=== PATIENT | female | born 1990 | race Two or more races ===

== ENCOUNTER 2016-06-29 11:14 | Inpatient (IN) | payer OTHER ==
[2016-07-07] MEDS ORDERED: OXYTOCIN IN LR 500 ML IV ONE ×2 (11:34→12:28)
[2016-07-07 12:05] VITALS: BMI 31.4
[2016-07-07 12:23] LABS: HEMATOCRIT 33.2 % (37.0-47.0); HEMOGLOBIN 10.3 gm/l (12.0-16.0); MEAN CORPUSCULAR HEMOGLOBIN 23.9 pg (27.0-31.0); RED CELL DISTRIBUTION WIDTH 14.8 % (11.5-14.5)
[2016-07-07] MEDS ORDERED: IV START KIT ONE ×2 (12:26→12:53)
[2016-07-07] MEDS ORDERED: PUMP TUBING ONE (12:27)
[2016-07-07] MEDS ORDERED: OXYTOCIN 10 UNITS/ML VIAL ONE (12:27)
[2016-07-07] MEDS ORDERED: SODIUM CHLORIDE 0.9% FLUSH 10 ML ONE ×2 (12:27→12:53)
[2016-07-07] MEDS ORDERED: LIDOCAINE 1% (PRES FREE) 30 ML VIAL ONE (12:27)
[2016-07-07] MEDS ORDERED: LIDOCAINE Viscous 2% 15 ML UDCUP ONE (12:27)
[2016-07-07] MEDS ORDERED: MINERAL OIL 25 ML BOT ONE (12:27)
[2016-07-07] MEDS ORDERED: ONDANSETRON 4 MG/2ML 2 ML VIAL IV PRN ×2 (14:43→19:05)
[2016-07-07] MEDS: FENTANYL 100 MCG/2 ML VIAL IV PRN ×2 (17:17→18:21)
[2016-07-07] MEDS: LACTATED RINGERS 500 ML IV ONE ×2 (17:45→18:41)
[2016-07-07] MEDS ORDERED: EPIDURAL PUMP SET ONE (17:49)
[2016-07-07] MEDS ORDERED: FENTANYL/ROPIVACAINE EPIDURAL 250 ML EP ONE (17:50)
[2016-07-07] MEDS ORDERED: LACTATED RINGERS 2,000 ML ONE (17:50)
[2016-07-07] MEDS ORDERED: PROMETHAZINE HCL 25 MG/ML VIAL IM PRN (18:19)
--- NOTE | 2016-07-07 18:33 | PCMAN ---
OB Admission Note - History : 5 Term: 3 : 0 Abortions (S&E): 2 Livin EDC:: 07/07/16 Gestational Age (weeks): 40 Days (#/7): 0 Admit Cervical Dilation:: 3 Admit Cervical Effacement (%):: 75 Admit Station:: -2 Membrane Status: Ruptured Rupture (Date): 07/07/16 Rupture (Time): 11:00 Membranes Comment:: clear Labor Onset (Date): 07/07/16 Labor Onset (Time): 11:00 Contractions: Yes Contraction Frequency:: occassional Heart Rate:: 130 Status:: category 1 Summary of Course:: course complicated by Iron deficiency anemia, Depression with Anxiety and nausea. Dating by 8 week US. She had 2 miscarriages in 2014 so we did the early US. 20 week US confirmed dating and showed normal male fetus. She was in for regular visit today and ended up rupturing clear fluid as I was checking her cervix and attempting to sweep the membranes. - Labs Blood Type: O (+) positive Hct/Hgb:: 33.2/10.3 Rubella Status: Immune GBS Status: Negative Abnormal Labs: None - Physical Exam General: Afebrile, Mild Distress Psych/Mental Status: Mood/Affect Appropriate, Judgment/Insight Intact Neurological: Grossly Intact, Alert, Oriented x 4, Normal Gait, Normal Speech HEENT: Atraumatic, PERRLA, EOMI, Mucous membr. moist/pink Lungs: Clear to Auscultation Bilaterally Cardiovascular: Regular Rate and Rhythm, No Murmur Abdomen: Normal Bowel Sounds Genitourinary: Normal Female Genitalia, No Edema Rectal Exam: Deferred Extremities: Full ROM, No Edema DTR: Patellar (L): 2+ (Brisk, Normal), Patellar (R): 2+ (Brisk, Normal) Skin: Normal Color, No Rash - Problems (1) 40 weeks gestation of Status: Acute Code: Z3A.40 Assessment/Plan: SROM, starting labor, expect (2) SROM (spontaneous rupture of membranes) Status: Acute Code: [id number] Assessment/Plan: Clear amniotic fluid, expectant management. (3) Iron deficiency anemia of mother during Status: Acute Code: O99.019 Assessment/Plan: Taking oral Iron with vitamin C, will continue. (4) Depression with anxiety Status: Acute Code: F41.8 Assessment/Plan: Was taking Viibryd earlier in but is not taking it currently.
[2016-07-07] MEDS ORDERED: NALBUPHINE HCL 20 MG/ML AMP IV PRN (19:05)
[2016-07-07] MEDS ORDERED: DIPHENHYDRAMINE HCL 50 MG/1 ML VIAL IV PRN (19:05)
[2016-07-07] MEDS ORDERED: SODIUM CHLORIDE 0.9% 500 ML IV PRN (19:05)
[2016-07-07] MEDS ORDERED: NALOXONE HCL 0.4 MG/ML VIAL IV PRN (19:05)
[2016-07-07] MEDS ORDERED: EPHEDRINE SULFATE 50 MG/ML 1ML VIAL IV PRN (19:05)
[2016-07-07] MEDS ORDERED: METOCLOPRAMIDE HCL 5 MG/ML 2ML VIAL IV PRN (19:05)
[2016-07-07] MEDS ORDERED: LACTATED RINGERS 1,000 ML IV SCH (19:05)
[2016-07-07] MEDS ORDERED: LACTATED RINGERS 500 ML IV PRN (19:05)
[2016-07-07] MEDS ORDERED: FENTANYL/ROPIVACAINE EPIDURAL 250 ML EP SCH (19:05)
[2016-07-07] MEDS ORDERED: EPIDURAL PROCEDURE TRAY ONE (19:31)
[2016-07-07] MEDS ORDERED: LIDOCAINE 2% (PRES FREE) 5 ML VIAL ONE (19:31)
[2016-07-07] MEDS ORDERED: OXYCODONE HCL 5 MG TABLET PO PRN (22:18)
[2016-07-07] MEDS ORDERED: CALCIUM CARBONATE 500 MG TAB.CHEW PO PRN (22:18)
[2016-07-07] MEDS ORDERED: BENZOCAINE/MENTHOL 60 APPLIC/BOT TP PRN (22:18)
[2016-07-07] MEDS ORDERED: ACETAMINOPHEN 325 MG TABLET PO PRN (22:18)
[2016-07-07] MEDS ORDERED: LANOLIN 50 APPLIC/7G TUBE TP PRN (22:18)
--- NOTE | 2016-07-07 22:23 | PCMDEL ---
Delivery Note - Labor 1st stage (hr/min):: 10 hr/52 min 2nd stage (hr/min):: 21 min 3rd stage (hr/min):: 5 min Total (hr/min):: 11 hr/ 18 min Pushed (hr/min):: 5 min - Delivery Delivery (Date): 07/07/16 Delivery (Time): 21:52 Gender: Male Presentation: Cephalic Position: OA Umbilical Cord: 3 Vessel Delayed Cord Clamping:: > 3 min 1 Minute Total: 9 5 Minute Total: 9 Placenta:: intact EBL:: 100 ml Perineum:: intact Suture:: N/A Anesthesia/Meds:: Epidural Length ROM:: 10 hr/52 min Comments:: Beautiful, uncomplicated vaginal delivery assisted by patient's mother who caught baby and placed him on patient chest. Mother and stable post .
[2016-07-07] MEDS: IBUPROFEN 800 MG TABLET PO PRN (23:29)
[2016-07-08] MEDS ORDERED: IV START KIT ONE (01:54)
[2016-07-08] MEDS ORDERED: LACTATED RINGERS 1,000 ML ONE (01:54)
[2016-07-08] MEDS: OXYCODONE/ACETAMINOPHEN 5/325 MG TABLET PO PRN ×5 (02:10→20:28)
[2016-07-08] MEDS: IBUPROFEN 800 MG TABLET PO PRN ×3 (05:57→19:57)
[2016-07-08 07:01] LABS: HEMATOCRIT 29.1 % (37.0-47.0); HEMOGLOBIN 9.2 gm/l (12.0-16.0)
--- NOTE | 2016-07-08 08:35 | PDOC44 ---
- Subjective Day: 1 Reports Flatus, Reports Pain Tolerable, Reports , Reports Lochia Light, Reports Tolerating Regular Diet - Objective Temp Pulse Resp BP Pulse Ox 98.5 F 101 18 112/55 07/08/16 02:05 07/08/16 02:05 07/08/16 02:05 07/08/16 02:05 Lab Results 07/08/16 07/07/16 06:15 12:00 WBC 9.3 RBC 4.31 Hgb 9.2 L 10.3 L Hct 29.1 L 33.2 L Plt Count 360 07/07/16 12:00 MCV 77.0 L MCH 23.9 L MCHC 31.0 L RDW 14.8 H Current Medications Generic Name Dose Route Start Last Admin Trade Name Freq PRN Reason Stop Dose Admin Acetaminophen 325 - 650 mg 07/07/16 22:18 Tylenol PO Q4H PRN Pain (Mild) Ascorbic Acid 500 mg 07/08/16 07:00 Vitamin C PO 0700,1700 YESSI Benzocaine/Menthol 1 applic 07/07/16 22:18 Dermoplast TP PRN PRN Patient Comfort Calcium Carbonate/Glycine 500 - 1,000 mg 07/07/16 22:18 Tums PO BID PRN Indigestion Docusate Sodium 100 mg 07/07/16 22:18 Colace PO DAILY PRN Comfort Emollient Ointment 1 applic 07/07/16 22:18 [id number] TP PRN PRN sore nipples Ferrous Sulfate 325 mg 07/08/16 07:00 Ferrous Sulfate PO 0700,1700 YESSI Ropivacaine/Fentanyl/NS 250 mls @ 0 mls/hr 07/07/16 19:05 07/07/16 19:24 Fentanyl 2 Mcg/Ml + Ropivacaine 0.125% Ep Bag EP 15 mls/hr EPI YESSI Administration Protocol Per Protocol Ibuprofen 800 mg 07/07/16 22:18 07/08/16 05:57 Motrin PO 800 mg Q6H PRN Administration Pain (Mild) Multivi/Iron Carb/Fe Sulf/FA/Prenat 1 tab 07/08/16 09:00 Plus PO DAILY YESSI Ondansetron HCl 4 mg 07/07/16 14:43 07/07/16 16:50 Zofran IV 4 mg Q6H PRN Administration Nausea/Vomiting Oxycodone HCl 5 - 10 mg 07/07/16 22:18 Roxicodone PO Q3H PRN Pain (Severe) Oxycodone/Acetaminophen 1 - 2 tab 07/07/16 22:18 07/08/16 06:28 Percocet 5/325 PO 2 tab Q4H PRN Administration Pain (Moderate) Sodium Chloride 10 ml 07/07/16 22:18 Normal Saline 10ml Flush IV PRN PRN IV Flush - Physical Exam General: Afebrile, No Acute Distress Psych/Mental Status: Mood/Affect Appropriate, Bonding Well Neurological: Alert, Oriented x 4 HEENT: Atraumatic, PERRLA, EOMI, Mucous membr. moist/pink Lungs: Clear to Auscultation Bilaterally Cardiovascular: Regular Rate and Rhythm, No Murmur Breast: Soft, Nipples Intact, No Nipples Cracked Fundus: Firm, Midline, At Umbilicus Abdomen: Normal Bowel Sounds Genitourinary: Normal Female Genitalia, No Edema Lochia: Light Extremities: Full ROM, No Edema, No Tenderness Skin: Normal Color, Warm, Dry, Intact, No Rash - Problems:Assessment/Plan (1) Iron deficiency anemia of mother during Status: Acute Assessment/Plan: Taking oral Iron with vitamin C, will continue. (2) Depression with anxiety Status: Acute Assessment/Plan: Was taking Viibryd earlier in but is not taking it currently and mood is stable. (3) (normal spontaneous vaginal delivery) Status: Acute Assessment/Plan: Stable, continue routine post care. Disposition: Stable, Anticipate DC Home Tomorrow
[2016-07-08] MEDS: PRENATAL VIT/FE FUMARATE/FA 1 TABLET PO SCH (10:25)
[2016-07-08] MEDS: DOCUSATE SODIUM 100 MG CAPSULE PO PRN (10:25)
[2016-07-08] MEDS: ASCORBIC ACID 500 MG TABLET PO SCH ×2 (10:25→19:57)
[2016-07-08] MEDS: FERROUS SULFATE (65 Fe) 325 MG TABLET PO SCH ×2 (10:26→19:57)
[2016-07-09] MEDS: OXYCODONE/ACETAMINOPHEN 5/325 MG TABLET PO PRN ×3 (01:17→10:35)
[2016-07-09] MEDS: IBUPROFEN 800 MG TABLET PO PRN ×2 (04:04→10:35)
[2016-07-09 08:15] VITALS: BP 123/63
--- NOTE | 2016-07-09 09:43 | PDOC39B ---
Hospital Course: ADMIT DATE: 07/07/16 DISCHARGE DATE: 07/09/16 ADMISSION DIAGNOSES: 40 week , SROM PROCEDURES: Spontaneous Vaginal Delivery HISTORY OF PRESENT ILLNESS: 25 year old G5 T3 L2 at 40 weeks 0 days presenting with SROM, went into spontaneous labor and progressed normally. She required both IV Fentanyl followed by an epidural for pain management. She had an uncomplicated delivery. HOSPITAL COURSE: The patient had an uncomplicated post course. She was admitted anemic but lost lower than average blood at the delivery. She will be continued on Iron for her anemia. By day of discharge the patient is ambulating, eating, voiding, and passing flatus without difficulty. Pain is controlled and lochia is appropriate. She is [] - Physical Exam Vital Signs: Temp Pulse Resp BP Pulse Ox 98.3 F 76 18 123/63 07/09/16 08:09 07/09/16 08:09 07/09/16 08:09 07/09/16 08:09 General: Afebrile, No Acute Distress Psych/Mental Status: Mood/Affect Appropriate Neurological: Grossly Intact, Alert, Oriented x 4, Normal Speech, Normal Reflexes, Cranial Nerves 3-12 Intact HEENT: Atraumatic, PERRLA, EOMI, Mucous membr. moist/pink Lungs: Clear to Auscultation Bilaterally Cardiovascular: Regular Rate and Rhythm, No Murmur Breast: Soft, Skin intact, Nipples Intact, No Erythema Fundus: Firm, Midline, Below Umbilicus Abdomen: Normal Bowel Sounds Genitourinary: Normal Female Genitalia, No Edema Lochia: Light Extremities: Full ROM, No Edema Skin: Normal Color, Warm, Dry, Intact, No Rash - Discharge Diagnosis (1) Iron deficiency anemia of mother during Status: Acute Assessment/Plan: Taking oral Iron with vitamin C, will continue post as well. (2) Depression with anxiety Status: Acute Assessment/Plan: Was taking Viibryd earlier in but is not taking it currently and mood is stable. Patient denies sx of depression today, will monitor carefully as she is at risk for PP depression. I reviewed this with her and she is aware of what to watch for. (3) (normal spontaneous vaginal delivery) Status: Acute Assessment/Plan: Stable, discharge with follow up at 6 weeks. - Discharge Plan Condition: Good Disposition: Home Instruction Forms: Vaginal Discharge Instructions Prescriptions: Ibuprofen [IBUPROFEN 800 MG TABLET (SHF)] 800 mg PO Q6H PRN #30 tablet PRN Reason: Pain (Mild) Oxycodone HCl/Acetaminophen [PERCOCET 5/325 MG TABLET (SHF)] 1 - 2 tab PO Q4H PRN #20 tablet PRN Reason: Pain (Moderate) Cholecalciferol (Vitamin D3) [Vitamin D3] 5,000 units PO DAILY #100 capsule Follow-Up: Perlita Crawford MD [Primary Care Provider] - In 6 weeks
[2016-07-09] MEDS: FERROUS SULFATE (65 Fe) 325 MG TABLET PO SCH (10:35)
[2016-07-09] MEDS: DOCUSATE SODIUM 100 MG CAPSULE PO PRN (10:35)
[2016-07-09] MEDS: PRENATAL VIT/FE FUMARATE/FA 1 TABLET PO SCH (10:35)
[2016-07-09] MEDS: ASCORBIC ACID 500 MG TABLET PO SCH (10:36)
== END 2016-07-09 12:12 | disposition home or self-care (01) | DRG 775 ==
LOC: EDSTATUS 11:14 → FBC 07-07 11:21
PROVIDERS: ADMIT Family Medicine; ATTEND Family Medicine
PROC: 10E0XZZ Delivery of Products of Conception, External Approach (ICD-10-PCS; principal; 2016-07-07)
PROC: 3E0P7GC Introduction of Other Therapeutic Substance into Female Reproductive, Via Natural or Artificial Opening (ICD-10-PCS; 2016-07-07)
DX: O48.0 Post-term pregnancy (principal); O99.02 Anemia complicating childbirth; D50.9 Iron deficiency anemia, unspecified; O99.344 Other mental disorders complicating childbirth; F41.8 Other specified anxiety disorders; Z3A.40 40 weeks gestation of pregnancy; Z37.0 Single live birth